=== PATIENT | male | born 1980 | race Two or more races ===

== ENCOUNTER → 2020-05-30 | Day surgery (SDC) | payer MEDICAID ==
[~2020-05-30] VITALS: Ht 167.6 cm; Wt 54.0 kg
[~2020-05-30] MED LIST: CIPROFLOXACIN 400MG/200ML 200 ML IV ONE; HYDROmorphone HCL 2 MG/ML VL IV PRN; IOHEXOL 300 MG/ML 100ML BOTTLE IJ ONE; KETOROLAC TROMETH 30 MG/ML 1ML VIAL IV ONE; LABETALOL HCL 5 MG/ML 4ML SYRINGE IV PRN; LIDOCAINE 2% JELLY 11ml (GLYDO) ONE; MEPERIDINE HCL (25 MG/ML) 1ML VIAL ONE; MIDAZOLAM HCL 1MG/1ML-2 ML VIAL IV PRN; MIDAZOLAM HCL 1MG/1ML-2 ML VIAL ONE; MORPHINE SULFATE 4 MG/ML SYR/VIAL IV PRN; ONDANSETRON HCL 4 MG/2 ML VIAL IV PRN; PROPOFOL 10 MG/ML 20 ML IV ONE; ePHEDrine SULFATE 50 MG/ML AMP IV PRN; fentaNYL CITRATE 100 MCG/2 ML VL ONE
[2020-05-30 11:40] VITALS: BP 117/82
== END | disposition home or self-care (01) ==
LOC: SUR 06:54
PROVIDERS: ATTEND Urology
DX: N13.2 Hydronephrosis with renal and ureteral calculous obstruction (principal); Z20.828 Contact with and (suspected) exposure to other viral communicable diseases; Z98.890 Other specified postprocedural states; Z79.899 Other long term (current) drug therapy; F17.200 Nicotine dependence, unspecified, uncomplicated
CPT/HCPCS: 52005; 74018; 74420; 76001; 88300; J0744; J2175; J2250; J2704; J3010; Q9967; U0003

== ENCOUNTER 2021-06-27 11:46 | Emergency (ER) | payer MEDICAID ==
[~2021-06-27] VITALS: Ht 167.6 cm; Wt 54.0 kg
[2021-06-27 13:17] VITALS: BP 128/72
== END 2021-06-27 13:18 | disposition home or self-care (01) ==
LOC: ER 11:46
DX: Z43.6 Encounter for attention to other artificial openings of urinary tract (principal); F17.210 Nicotine dependence, cigarettes, uncomplicated